=== PATIENT | male | born 1970 | race Caucasian/White ===

== ENCOUNTER → 2016-09-09 | Outpatient (CLI) | payer BC ==
[~2016-09-09] MED LIST: AMBIEN 5MG TABLE5 MG PO; ATIVAN 1MG T1 MG/TAB PO; CELEXA 20MG20 MG/TAB PO; CELEXA40 MG PO; FLAGYL 250250 MG/TAB PO; NORCO 325 MG-51 TAB PO; OMNICEF 300MG300 MG PO; PERCR 7.5 PO; PREDNISONE20 MG PO; PRILOSEC 20MG20 MG PO; PROAIR HFA0.09 MG/AC IH; RT ADVAIR 128 DISKUS IH; RT ALBUTER2.5 MG/0.5 IH; ZITHROMAX 250M250 MG PO; chemotherapy IV
== END ==
LOC: BHSO 13:09
DX: F33.1 Major depressive disorder, recurrent, moderate (principal)

== ENCOUNTER → 2016-10-04 | Outpatient (CLI) | payer BC | LOC: COL.RAD 15:05 | DX: J98.11 Atelectasis (principal); J90 Pleural effusion, not elsewhere classified | CPT/HCPCS: Q9967 ==

== ENCOUNTER → 2016-12-26 | Outpatient (CLI) | payer BC | LOC: COL.RAD 07:18 | DX: C18.9 Malignant neoplasm of colon, unspecified (principal); R91.8 Other nonspecific abnormal finding of lung field; Z98.890 Other specified postprocedural states | CPT/HCPCS: Q9967 ==

== ENCOUNTER → 2017-03-15 | Outpatient (CLI) | payer BC | LOC: COL.RAD 10:15 | DX: N50.9 Disorder of male genital organs, unspecified (principal) ==

== ENCOUNTER → 2017-05-25 | Outpatient (CLI) | payer BC | LOC: BHSO 12:37 | DX: F06.32 Mood disorder due to known physiological condition with major depressive-like episode (principal) | CPT/HCPCS: G0463 ==

== ENCOUNTER → 2017-06-30 | Outpatient (CLI) | payer BC | LOC: BHSO 14:01 | DX: F06.32 Mood disorder due to known physiological condition with major depressive-like episode (principal) | CPT/HCPCS: G0463 ==

== ENCOUNTER 2017-11-24 21:15 | Emergency (ER) | payer BC ==
[~2017-11-24] VITALS: Ht 182.9 cm; Wt 95.5 kg
[2017-11-24 21:19] VITALS: BP 117/68; TEMP 98.6
[2017-11-24] MEDS ORDERED: PERCOCET 325 MG1 TA2 PO (23:09)
[2017-11-24 23:18] VITALS: PULSE 80
== END 2017-11-24 23:19 | disposition home or self-care (01) ==
LOC: COL.ER 21:15
DX: M54.42 Lumbago with sciatica, left side (principal); Z85.038 Personal history of other malignant neoplasm of large intestine; Z79.51 Long term (current) use of inhaled steroids
CPT/HCPCS: J1885

== ENCOUNTER → 2018-05-11 | Outpatient (CLI) | payer BC ==
[~2018-05-11] MED LIST changes: +PERCOCET 325 MG1 TA2 PO
== END ==
LOC: COL.RAD 08:30
DX: C19 Malignant neoplasm of rectosigmoid junction (principal); J98.4 Other disorders of lung; R91.1 Solitary pulmonary nodule; Z95.828 Presence of other vascular implants and grafts
CPT/HCPCS: Q9967

== ENCOUNTER 2018-05-23 11:28 | Emergency (ER) | payer BC ==
[~2018-05-23] VITALS: Ht 182.9 cm; Wt 88.6 kg
[2018-05-23 11:30] VITALS: BP 115/72; TEMP 98.4
[2018-05-23] MEDS ORDERED: MEDROL 4MG DOSPA4 MG PO (12:32)
[2018-05-23 12:50] VITALS: PULSE 82
== END 2018-05-23 12:50 | disposition home or self-care (01) ==
LOC: COL.ER 11:28
DX: J45.901 Unspecified asthma with (acute) exacerbation (principal); Z87.891 Personal history of nicotine dependence; Z85.118 Personal history of other malignant neoplasm of bronchus and lung; Z79.51 Long term (current) use of inhaled steroids
CPT/HCPCS: J1644; J2930

== ENCOUNTER 2018-07-05 09:20 | Emergency (ER) | payer OTHER, BC ==
[~2018-07-05] VITALS: Ht 274.3 cm; Wt 86.4 kg
[~2018-07-05 09:20] MED LIST changes: +MEDROL 4MG DOSPA4 MG PO
[2018-07-05 09:24] VITALS: TEMP 98.3
[2018-07-05 10:44] VITALS: BP 118/85; PULSE 80
== END 2018-07-05 10:45 | disposition home or self-care (01) ==
LOC: COL.ER 09:20
DX: S42.001A Fracture of unspecified part of right clavicle, initial encounter for closed fracture (principal); S50.311A Abrasion of right elbow, initial encounter; S90.511A Abrasion, right ankle, initial encounter; V29.9XXA Motorcycle rider (driver) (passenger) injured in unspecified traffic accident, initial encounter

== ENCOUNTER → 2018-10-03 | Outpatient (CLI) | payer BC ==
[~2018-10-03] MED LIST changes: +LEXAPRO20 MG PO
== END ==
LOC: COL.RAD 09:53
DX: C19 Malignant neoplasm of rectosigmoid junction (principal); R91.8 Other nonspecific abnormal finding of lung field; Z98.890 Other specified postprocedural states; Z95.9 Presence of cardiac and vascular implant and graft, unspecified
CPT/HCPCS: Q9967

== ENCOUNTER 2018-10-09 07:14 | Outpatient (CLI) | payer BC ==
[2018-10-09] VITALS (14 sets, daily range): BP systolic 98–125; BP diastolic 64–81; PULSE 62–75; TEMP 98.9
[~2018-10-09] VITALS: Ht 182.9 cm; Wt 90.5 kg
--- NOTE | 2018-10-09 07:45 | NUR ---
pt to ct per ambulation. Monitors applied and O2 on at 2l/nc.
--- NOTE | 2018-10-09 07:55 | NUR ---
Dr Mckenzie in to [facility] pt and talk with pt regarding procedure.
--- NOTE | 2018-10-09 08:20 | NUR ---
Pt to EU 10 per cart s/p lung bx. Pt reports pain 5-6/10 in chest. Elmer Mehta RN reported pain to Dr. Mckenzie and chest x-ray ordered.
--- NOTE | 2018-10-09 08:45 | NUR ---
Pt reports pain with deep breathes 5-6/10. Pt refused pain medication. Pt wants to see if pain goes away without intervention.
--- NOTE | 2018-10-09 10:30 | NUR ---
chest x ray complete. Dr. Mckenzie in to see pt and stated pt may go home.
--- NOTE | 2018-10-09 10:30 | NUR ---
Pt reports pain is stable at 5-6/10. Pt states he is ok to go home.
--- NOTE | 2018-10-09 10:40 | NUR ---
Pt has ambulated, voided and angelia PO intake s n/v. PIV removed with catheter intact.
--- NOTE | 2018-10-09 10:50 | NUR ---
Pt discharged per ambulation with .
== END 2018-10-09 11:22 | disposition home or self-care (01) ==
LOC: COL.RAD 07:14
DX: C19 Malignant neoplasm of rectosigmoid junction (principal); Z95.9 Presence of cardiac and vascular implant and graft, unspecified
CPT/HCPCS: J2250; J3010

== ENCOUNTER 2018-10-23 09:05 | Outpatient (CLI) | payer BC ==
[2018-10-23] VITALS (14 sets, daily range): BP systolic 115–142; BP diastolic 75–91; PULSE 64–75
[~2018-10-23] VITALS: Ht 182.9 cm; Wt 91.2 kg
--- NOTE | 2018-10-23 11:00 | NUR ---
PT TAKEN TO CT VIA AMBULATORY. PLACED INTO POSITION ON CT TABLE. IMAGES TAKEN AND SENT. PT PLACED ON MONITORING EQUIPMENT.
--- NOTE | 2018-10-23 11:20 | NUR ---
PROCEDURE COMPLETED. PT HAD NO IV MEDS. SEVERAL SAMPLES WERE TAKEN. SITE IS [facility].
--- NOTE | 2018-10-23 13:38 | NUR ---
Discharge instructions given to pt.pt verbalizes understanding.Pt refuses wheelchair,refuses escorte out.pt discharged with at bedside.
--- NOTE | 2018-10-23 14:14 | NUR ---
Pt notified of disk at desk for pt.
== END 2018-10-23 14:15 | disposition home or self-care (01) ==
LOC: COL.RAD 09:05
DX: C19 Malignant neoplasm of rectosigmoid junction (principal); R91.8 Other nonspecific abnormal finding of lung field

== ENCOUNTER → 2018-11-21 | Outpatient (CLI) | payer BC | LOC: MHCPAIN 14:06 | DX: M54.81 Occipital neuralgia (principal); G89.29 Other chronic pain; R51 Headache | CPT/HCPCS: G0463; J1040 ==

== ENCOUNTER → 2018-12-26 | Outpatient (CLI) | payer BC ==
[~2018-12-26] VITALS: Ht 182.9 cm; Wt 93.4 kg
[2018-12-26 13:34] LABS: BASO # 0.1 (0.0-0.2); EOS # 1.2 (0.0-0.7); EOS % 12.7 % (0-4.0); GRAN # 6.3 (1.4-6.5); GRAN % 64.5 % (42.2-75.2); HEMATOCRIT 41.2 % (42.0-52.0); HEMOGLOBIN 13.9 g/dl (13.5-18.0); LYMPH # 1.4 (1.2-3.4); LYMPH % 14.7 % (20.0-51.0); MEAN CELL VOLUME 91 fl (80.0-100.0); MEAN CORPUSCULAR HEMOGLOBIN 31 pg (27.0-31.0); MEAN CORPUSCULAR HGB CONC 34 g/dl (33.0-37.0); MEAN PLATELET VOLUME 8.8 fl (7.4-10.4); MONO # 0.7 (0.1-0.6); MONO % 6.8 % (1.7-9.3); PLATELET COUNT 333 K/mm3 (130-400); RED BLOOD COUNT 4.54 M/mm3 (4.20-5.60); REDCELL DISTRIBUTION WIDTH-CV 12.8 % (11.5-14.5)
[2018-12-26 13:43] LABS: ALBUMIN 3.8 gm/dL (3.5-5.0); BILIRUBIN,TOTAL 0.3 mg/dL (0.0-1.0); CALCIUM 8.3 mg/dL (8.4-10.2); CREATININE, serum 0.84 (0.66-1.25); POTASSIUM 3.8 mmol/L (3.4-5.0)
== END ==
LOC: COL.LAB 12:18 → COL.RAD 12:22
PROVIDERS: Internal Medicine
DX: C19 Malignant neoplasm of rectosigmoid junction (principal); R91.8 Other nonspecific abnormal finding of lung field; J90 Pleural effusion, not elsewhere classified; Z90.2 Acquired absence of lung [part of]; Z95.9 Presence of cardiac and vascular implant and graft, unspecified
CPT/HCPCS: J1644; J2930; J7030; Q9967

== ENCOUNTER → 2019-03-11 | Outpatient (CLI) | payer BC | LOC: COL.RAD 09:25 | DX: R51 Headache (principal) ==

== ENCOUNTER → 2019-03-26 | Outpatient (CLI) | payer BC | LOC: COL.RAD 07:55 | DX: C19 Malignant neoplasm of rectosigmoid junction (principal); C78.01 Secondary malignant neoplasm of right lung; J90 Pleural effusion, not elsewhere classified; Z95.9 Presence of cardiac and vascular implant and graft, unspecified | CPT/HCPCS: Q9967 ==

== ENCOUNTER → 2019-06-17 | Outpatient (CLI) | payer BC | LOC: COL.RAD 07:46 | DX: C19 Malignant neoplasm of rectosigmoid junction (principal); J90 Pleural effusion, not elsewhere classified; M46.1 Sacroiliitis, not elsewhere classified; J98.11 Atelectasis; J84.10 Pulmonary fibrosis, unspecified; R59.0 Localized enlarged lymph nodes; Z90.2 Acquired absence of lung [part of]; Z98.890 Other specified postprocedural states | CPT/HCPCS: Q9967 ==

== ENCOUNTER → 2019-07-22 | Outpatient (CLI) | payer BC | LOC: COL.RAD 10:50 | DX: J90 Pleural effusion, not elsewhere classified (principal); R91.8 Other nonspecific abnormal finding of lung field | CPT/HCPCS: Q9967 ==